=== PATIENT | female | born 1945 | race Two or more races ===

== ENCOUNTER 2018-09-22 10:41 | Inpatient (IN) | payer OTHER ==
[~2018-09-22] VITALS: Ht 154.9 cm; Wt 63.5 kg
[2018-10-04] MEDS ORDERED: COZAAR100 MG PO (11:16)
[2018-10-04] MEDS ORDERED: PANTOPRAZOLE SO40 MG PO (12:01)
[2018-10-16] MEDS ORDERED: HYOSCYAMINE0.125 M1 SL (15:59)
[2018-10-16] MEDS ORDERED: ACIDOPHILUS-PE1 EAC2 PO (16:00)
[2018-10-16] MEDS ORDERED: OXYC1TAB9 PO (16:00)
== END 2018-10-16 18:11 | disposition home or self-care (01) | DRG 330 ==
LOC: SURH 10-04 08:30 → O/R 10-09 07:00 → SURH 10-09 07:00
PROVIDERS: ADMIT Surgery
PROC: 07TD4ZZ Resection of Aortic Lymphatic, Percutaneous Endoscopic Approach (ICD-10-PCS; 2018-10-09)
PROC: 0DTU4ZZ Resection of Omentum, Percutaneous Endoscopic Approach (ICD-10-PCS; 2018-10-09)
PROC: 0DTG4ZZ Resection of Left Large Intestine, Percutaneous Endoscopic Approach (ICD-10-PCS; principal; 2018-10-09 08:15)
DX: C18.6 Malignant neoplasm of descending colon (principal); D62 Acute posthemorrhagic anemia; K91.31 Postprocedural partial intestinal obstruction; R59.0 Localized enlarged lymph nodes; R19.5 Other fecal abnormalities; K66.0 Peritoneal adhesions (postprocedural) (postinfection); K66.8 Other specified disorders of peritoneum; E83.42 Hypomagnesemia; R14.0 Abdominal distension (gaseous); E87.6 Hypokalemia

== ENCOUNTER → 2018-10-09 06:43 | Outpatient (CLI) | payer OTHER ==
[~2018-10-09 06:43] MED LIST: COZAAR100 MG PO; PANTOPRAZOLE SO40 MG PO
== END | disposition home or self-care (01) ==
LOC: LAB 06:43
DX: E87.6 Hypokalemia (principal)

== ENCOUNTER 2022-12-21 10:44 | Inpatient (IN) | payer OTHER ==
[~2022-12-21] VITALS: Ht 152.4 cm; Wt 56.7 kg
[~2022-12-21 10:44] MED LIST changes: +ACIDOPHILUS-PE1 EAC2 PO; +HYOSCYAMINE0.125 M1 SL; +OXYC1TAB9 PO
[2022-12-21] MEDS ORDERED: VAZALORE81 MG (10:59)
[2022-12-21 13:14] LABS: HEMATOCRIT 26.9 % (36.0-45.00); MEAN CORPUSCULAR HEMOGLOBIN 28.7 pg (27.00-32.0); MEAN CORPUSCULAR HGB CONC 32.7 g/dl (32.0-36.0); PLATELET COUNT 327 K/uL (150-450); RED BLOOD COUNT 3.06 M/uL (4.00-6.00); RED CELL DISTRIBUTION WIDTH 13.6 % (11.5-14.5)
[2022-12-21 13:15] LABS: URINE APPEARANCE Clear; URINE BILIRRUBIN Negative (NEGATIVE); URINE BLOOD Negative; URINE COLOR Yellow; URINE GLUCOSE Negative (NEGATIVE); URINE LEUKOCYTE Trace; URINE NITRATE Negative; URINE PROTEIN 30 (NEGATIVE); URINE UROBILINOGEN 0.2 E.U./dl
[2022-12-21 13:16] LABS: HEMOGLOBIN 8.8 g/dL (12.0-15.00)
[2022-12-21 13:20] LABS: URINE BACTERIA 238.1 uL (0.0-1933); URINE EPITHELIAL CELLS 13.9 uL (0.0-38.8); URINE RBC 5.6 uL (0.0-20.8); URINE WBC 14.8 uL (0.0-23.2)
[2022-12-21 13:27] LABS: INR 1.03; PARTIAL THROMBOPLASTIN TIME 23.7 SECONDS (22.0-34.0); PROTHROMBIN TIME 10.8 SECONDS (9.0-11.5)
[2022-12-21 13:31] LABS: ALBUMIN 3.7 gm/dL (3.4-5.0); BILIRUBIN TOTAL 0.27 mg/dL (0.3-1.2); CALCIUM 8.9 mg/dL (8.5-10.1); CREATININE SERUM 3.16 mg/dL (0.55-1.02); GFR 14.33; GLOBULINA 3.2 G/DL (2.4-3.5); POTASSIUM 5.48 mEq/L (3.5-5.1); TOTAL PROTEIN 6.9 gm/dL (6.4-8.2)
[2022-12-21 16:59] LABS: ABG PH 7.366 (7.35-7.45); ABG PO2 106.5 mmHg (80-100); ABG pCO2 32.5 mmHg (35-45); BICARBONATE 18.2 mmol/l (23-25); SaO2 97.7 %; Tco2 19.2 mmol/l
[2022-12-21 17:16] LABS: allen test SATISFACTORY; o2 21 %; puncture site RADIAL RIGHT
[2022-12-21 18:13] LABS: MAGNESIUM 1.5 mg/dL (1.8-2.4)
[2022-12-22 14:53] LABS: URINE APPEARANCE Clear; URINE BILIRRUBIN Negative (NEGATIVE); URINE BLOOD Negative; URINE COLOR Yellow; URINE GLUCOSE Negative (NEGATIVE); URINE LEUKOCYTE Trace; URINE NITRATE Negative; URINE PROTEIN Trace (NEGATIVE); URINE UROBILINOGEN 0.2 E.U./dl
[2022-12-22 14:57] LABS: URINE BACTERIA 59.2 uL (0.0-1933); URINE EPITHELIAL CELLS 6.4 uL (0.0-38.8); URINE WBC 21.4 uL (0.0-23.2)
[2022-12-22 15:01] LABS: URINE RBC 0.5 uL (0.0-20.8)
[2022-12-23 06:50] LABS: MEAN CELL VOLUME 89.6 fL (80.00-100.00); MEAN CORPUSCULAR HGB CONC 32.2 g/dl (32.0-36.0); PLATELET COUNT 266 K/uL (150-450); RED BLOOD COUNT 2.57 M/uL (4.00-6.00); RED CELL DISTRIBUTION WIDTH 13.4 % (11.5-14.5)
[2022-12-23 06:56] LABS: MEAN CORPUSCULAR HEMOGLOBIN 28.7 pg (27.00-32.0)
[2022-12-23 06:57] LABS: HEMOGLOBIN 7.4 g/dL (12.0-15.00)
[2022-12-23 06:59] LABS: ALBUMIN 2.7 gm/dL (3.4-5.0); ALKALINE PHOSPHATASE 50 U/L (50-136); ALT/SGPT 13 U/L (12-78); ANION GAP 9 (10.0-20.0); AST/SGOT 8 U/L (15-37); BILIRUBIN TOTAL 0.22 mg/dL (0.3-1.2); BLOOD UREA NITROGEN 53 mg/dL (7-18); BUN CREA RATIO 16 (7.0-25.0); CALCIUM 7.9 mg/dL (8.5-10.1); CARBON DIOXIDE 23 mEq/L (21-32); CHLORIDE 115 mmol/L (98-107); CREATININE SERUM 3.37 mg/dL (0.55-1.02); GLOBULINA 2.4 G/DL (2.4-3.5); GLUCOSE FASTING 81 mg/dL (65-100); OSMOLALITY SERUM 297 MOSM/KG (275-295); PHOSPHOROUS 4.6 mg/dL (2.5-4.9); POTASSIUM 5.16 mEq/L (3.5-5.1); SODIUM 142 mmol/L (136-145); TOTAL PROTEIN 5.1 gm/dL (6.4-8.2)
[2022-12-23 07:07] LABS: C-REACTIVE PROTEIN < 0.29 MG/DL (0.00-0.29)
[2022-12-24 07:15] LABS: HEMATOCRIT 30.4 % (36.0-45.00); MEAN CELL VOLUME 88.1 fL (80.00-100.00); MEAN CORPUSCULAR HEMOGLOBIN 28.9 pg (27.00-32.0); MEAN CORPUSCULAR HGB CONC 32.9 g/dl (32.0-36.0); PLATELET COUNT 256 K/uL (150-450); RED BLOOD COUNT 3.45 M/uL (4.00-6.00)
[2022-12-24 08:06] LABS: URINE APPEARANCE Clear; URINE BILIRRUBIN Negative (NEGATIVE); URINE BLOOD Negative; URINE COLOR Yellow; URINE GLUCOSE Negative (NEGATIVE); URINE LEUKOCYTE Negative; URINE NITRATE Negative; URINE PROTEIN Negative (NEGATIVE); URINE UROBILINOGEN 0.2 E.U./dl
[2022-12-24 08:07] LABS: URINE BACTERIA 13.8 uL (0.0-1933); URINE EPITHELIAL CELLS 2.9 uL (0.0-38.8); URINE WBC 3.2 uL (0.0-23.2)
[2022-12-24 17:17] LABS: ALBUMIN 3.1 gm/dL (3.4-5.0); BILIRUBIN TOTAL 0.3 mg/dL (0.3-1.2); CALCIUM 8.1 mg/dL (8.5-10.1); CREATININE SERUM 3.09 mg/dL (0.55-1.02); GFR 14.7; GLOBULINA 2.7 G/DL (2.4-3.5); PHOSPHOROUS 4.4 mg/dL (2.5-4.9); POTASSIUM 5.08 mEq/L (3.5-5.1); TOTAL PROTEIN 5.8 gm/dL (6.4-8.2)
[2022-12-24 17:18] LABS: MAGNESIUM 1.4 mg/dL (1.8-2.4)
[2022-12-25 14:05] LABS: HEMOGLOBIN 10.8 g/dL (12.0-15.00); MEAN CELL VOLUME 87.5 fL (80.00-100.00); MEAN CORPUSCULAR HEMOGLOBIN 29.5 pg (27.00-32.0); MEAN CORPUSCULAR HGB CONC 33.7 g/dl (32.0-36.0); PLATELET COUNT 294 K/uL (150-450); RED BLOOD COUNT 3.66 M/uL (4.00-6.00); RED CELL DISTRIBUTION WIDTH 14.8 % (11.5-14.5)
[2022-12-25 14:30] LABS: ALBUMIN 3.1 gm/dL (3.4-5.0); BILIRUBIN TOTAL 0.34 mg/dL (0.3-1.2); CALCIUM 8.2 mg/dL (8.5-10.1); CREATININE SERUM 2.6 mg/dL (0.55-1.02); GFR 17.94; GLOBULINA 2.9 G/DL (2.4-3.5); MAGNESIUM 2.1 mg/dL (1.8-2.4); POTASSIUM 4.78 mEq/L (3.5-5.1)
[2022-12-26 07:18] LABS: CREATININE SERUM 2.56 mg/dL (0.55-1.02); GFR 18.27; POTASSIUM 4.64 mEq/L (3.5-5.1)
[2022-12-27 06:37] LABS: HEMATOCRIT 30.6 % (36.0-45.00); HEMOGLOBIN 9.9 g/dL (12.0-15.00); MEAN CELL VOLUME 90.1 fL (80.00-100.00); MEAN CORPUSCULAR HEMOGLOBIN 29.1 pg (27.00-32.0); MEAN CORPUSCULAR HGB CONC 32.3 g/dl (32.0-36.0); PLATELET COUNT 257 K/uL (150-450); RED BLOOD COUNT 3.39 M/uL (4.00-6.00); RED CELL DISTRIBUTION WIDTH 14.2 % (11.5-14.5)
[2022-12-27 06:53] LABS: ALBUMIN 2.8 gm/dL (3.4-5.0); BILIRUBIN TOTAL 0.34 mg/dL (0.3-1.2); CREATININE SERUM 2.31 mg/dL (0.55-1.02); GFR 20.57; GLOBULINA 2.6 G/DL (2.4-3.5); POTASSIUM 4.38 mEq/L (3.5-5.1); TOTAL PROTEIN 5.4 gm/dL (6.4-8.2)
== END 2022-12-27 19:43 | disposition home or self-care (01) | DRG 683 ==
LOC: ER 10:45 → MEDI 16:46 → MEDJ 12-22 14:18
PROVIDERS: Emergency Medicine; General Practice; Internal Medicine; Internal Medicine Infectious Disease; ADMIT Internal Medicine; ATTEND Internal Medicine
PROC: BT43ZZZ Ultrasonography of Bilateral Kidneys (ICD-10-PCS; principal; 2022-12-21)
PROC: 8E0ZXY6 Isolation (ICD-10-PCS; 2022-12-22)
PROC: 30233N1 Transfusion of Nonautologous Red Blood Cells into Peripheral Vein, Percutaneous Approach (ICD-10-PCS; 2022-12-23)
DX: N17.8 Other acute kidney failure (principal); C18.5 Malignant neoplasm of splenic flexure; C74.90 Malignant neoplasm of unspecified part of unspecified adrenal gland; N39.0 Urinary tract infection, site not specified; T45.1X5A Adverse effect of antineoplastic and immunosuppressive drugs, initial encounter; C76.0 Malignant neoplasm of head, face and neck; D64.89 Other specified anemias; I12.9 Hypertensive chronic kidney disease with stage 1 through stage 4 chronic kidney disease, or unspecified chronic kidney disease; D63.1 Anemia in chronic kidney disease; N18.9 Chronic kidney disease, unspecified; Z74.01 Bed confinement status; Z92.21 Personal history of antineoplastic chemotherapy